=== PATIENT | male | born 1985 | race African-American/Black ===

== ENCOUNTER 2016-11-29 14:51 | Emergency (ER) | payer MEDICAID ==
[~2016-11-29] VITALS: Ht 182.9 cm; Wt 76.9 kg
[2016-11-29 15:04] VITALS: BP 142/74
[2016-11-29] MEDS ORDERED: LIDOCAINE 1%, 20ML ONE (15:26)
[2016-11-29] MEDS ORDERED: LIDOCAINE 1%, 10ML INFIL ONE (15:30)
== END 2016-11-29 15:58 | disposition home or self-care (01) ==
LOC: ED 15:00
DX: K04.7 Periapical abscess without sinus (principal)
CPT/HCPCS: 41800; 99284